=== PATIENT | male | born 1965 | race Caucasian/White ===

== ENCOUNTER 2020-11-19 15:05 | Emergency (ER) | payer OTHER, SELFPAY ==
--- NOTE | ~2020-11-19 | XR_ITS ---
EXAMINATION: XR finger 2nd LT min 2V EXAM DATE: 11/19/2020 15:28 INDICATION: Circular saw vs finger.. Initial encounter. TECHNIQUE: Left 2nd finger frontal, lateral and oblique projections obtained and reviewed. There i s no prior study for comparison. FINDINGS: There are no acute left 2nd finger fractures or dislocations identified. There is no subcu taneous gas. There is laceration volar to the middle phalanx. There are no radiopaque foreign ramya s. IMPRESSION: 1. Left 2nd finger exam without acute osseous findings. 2. Soft tissue laceration. Reviewed, dictated and finalized at location A.
[2020-11-19 15:12] VITALS: BP 148/87; RESP 16; TEMP 36; O2SAT 98
[2020-11-19 16:14] VITALS: BP 138/87; PULSE 82; RESP 18; TEMP 36.8; O2SAT 97
--- NOTE | 2020-11-19 16:44 | ED.WOUNDLAC ---
HPI - Wound/Laceration General Chief Complaint: Wound/Laceration Stated Complaint: finger lac Time Seen by Provider: 11/19/20 16:14 Source: patient Mode of arrival: ambulatory Limitations: no limitations History of Present Illness HPI narrative: This is a 55 year old male that presents to the ER for laceration to the left 2nd finger sustained just prior to arrival. Reports he was using a circular saw and accidentally cut the finger. He is up to date on tetanus. Denies decreased ROM or numbness. Related Data Allergies Allergy/AdvReac Type Severity Reaction Status Date / Time No Known Allergies Allergy Unverified 11/03/15 12:24 Review of Systems Review of Systems: Narrative: CONSTITUTIONAL: Denies fever SKIN: Reports laceration NEUROLOGIC: Denies numbness All systems reviewed & are unremarkable except as noted in HPI and below PMFSH Past Medical History Medical History (Updated 11/19/20 @ 18:33 by Kimmy Dorado PA-C) No active medical problems Social History Social History (Updated 11/19/20 @ 16:52 by Kimmy Dorado PA-C) Smoking status: Never smoker Exam Narrative: Exam Narrative: GENERAL: Well-appearing, well-nourished, and in no acute distress. HEAD: Normocephalic, atraumatic. EYES: EOMI. EXTREMITIES: Normal range of motion. Left 2nd finger palmar surface of middle phalanx with 2cm irregular laceration into subcutaneous tissue SKIN: Warm, dry, no rash. NEURO: No focal deficits. Alert and oriented x3. PSYCH: Normal mood and affect Course Vital Signs Vital signs: Vital Signs Temperature 96.8 F L 11/19/20 15:12 Respiratory Rate 16 11/19/20 15:12 Blood Pressure 148/87 H 11/19/20 15:12 Pulse Oximetry 98 11/19/20 15:12 Temperature 98.3 F 11/19/20 16:14 Pulse Rate 82 11/19/20 16:14 Respiratory Rate 18 11/19/20 16:14 Blood Pressure 138/87 11/19/20 16:14 Pulse Oximetry 97 11/19/20 16:14 Procedures Laceration Laceration 1: Date: 11/19/20 Time: 18:32 Site: hand Side (If applicable): left Size (cm): 2 Description: irregular Depth: simple, single layer Local Anesthetic: lidocaine 1% Amount of anesthesia used (mL): 4 Pre-repair: wound explored and irrigated ====== Skin Level ====== Skin layer closed with: nylon Size (cm): 4-0 Number of sutures: 5 Technique: simple, interrupted ====== Subcutaneous Layer ====== ====== Muscle Layer ====== ====== Tendon Layer ====== MDM - Wound/Laceration MDM Narrative Medical decision making narrative: Patient presents the emergency department for left second finger laceration sustained just prior to arrival. Left hand x-rays without acute osseous abnormalities. Patient's wound was irrigated and closed with sutures. He is up-to-date on tetanus. He was educated on wound care. He is to follow-up with primary care doctor. He was given warnings to return to the ER Imaging Data Radiologist's impression: ITS Impressions Finger X-Ray 11/19/20 15:35 IMPRESSION: 1. Left 2nd finger exam without acute osseous findings. 2. Soft tissue laceration. Critical Care Time Critical Care Time Critical Care Time: No Discharge Plan Discharge Clinical Impression: Laceration Patient Disposition: Home, Self-Care Condition: Stable Instructions: Care For Your Stitches (ED), Laceration (ED) Additional Instructions: Return to the emergency department if you experience fever, redness or swelling of your wound, abnormal drainage from your wound, or any other symptoms that are concerning to you. Apply antibiotic ointment daily. Do not soak the wound. Clean with mild soap and water daily Follow-up with your primary care doctor for suture removal in 10-14 days. Prescriptions: New cephalexin 500 mg capsule 500 mg PO Q8H 5 Days Qty: 15 RF: 0 Follow-up/Referrals: Carlos Marroquin MD [Physician
== END 2020-11-19 18:44 | disposition home or self-care (01) ==
PROVIDERS: Emergency Provider Emergency Medicine
DX: S61.211A Laceration without foreign body of left index finger without damage to nail, initial encounter (principal); W27.0XXA Contact with workbench tool, initial encounter
CPT/HCPCS: 12001; 73140; 99283

== ENCOUNTER 2020-11-29 08:06 | Emergency (ER) | payer OTHER, SELFPAY ==
[2020-11-29 08:12] VITALS: BP 143/81; PULSE 63; RESP 16; TEMP 36.1; O2SAT 100
--- NOTE | 2020-11-29 08:21 | ED.WOUNDLAC ---
HPI - Wound/Laceration General Chief Complaint: Wound/Laceration Stated Complaint: SUTURE REMOVAL Time Seen by Provider: 11/29/20 08:21 Source: patient Mode of arrival: ambulatory Limitations: no limitations History of Present Illness HPI narrative: Ryan Dolan is a 55 yo male with no PMH who came in for suture removal. Sutures placed in emergency room at [facility] 10 days ago. Cut R index finger with cordless power saw above the DNP, palmar side Related Data Home Medications Medication Instructions Recorded Confirmed multivitamin [Daily Multivitamin] tablet 11/29/20 Allergies Allergy/AdvReac Type Severity Reaction Status Date / Time No Known Allergies Allergy Verified 11/29/20 08:14 Review of Systems Review of Systems: Narrative: CONSTITUTIONAL: Denies fever, chills, sweats. EYES: Denies visual changes, redness, discharge. ENT: Denies rhinorrhea, congestion, sore throat, otalgia. CARDIOVASCULAR: Denies chest pain, palpitations, edema. RESPIRATORY: Denies dyspnea, wheezing, cough GASTROINTESTINAL: Denies abdominal pain, nausea, vomiting, diarrhea. GENITOURINARY: Denies dysuria, hematuria, abnormal discharge SKIN: Denies rash or itching. Suture removal to right distal index finger palmar side NEUROLOGIC: Denies numbness, or focal weakness. PSYCHIATRIC: Denies anxiety or depression. PMFSH Past Medical History Medical History No active medical problems Social History Social History (Updated 11/29/20 @ 08:46 by Kathy Bhat CNP) Smoking status: Never smoker Alcohol intake: current Comments At time of signature, I agree with nursing past medical, surgical, social and family history. There is no relevant family history pertinent to the presenting complaint. Because patient's blood pressure is elevated at this visit and he does not have a primary care physician, pt was given a list of primary care doctors to establish care. Emphasized Need for follow-up Exam Narrative: Exam Narrative: GENERAL: This is a well-nourished, well-developed patient, in mild distress. HEAD: normocephalic, atraumatic. EYES:Sclera clear/white. Vision is grossly intact. EARS: External ears normal, . Hearing grossly intact. NOSE: External nose normal without nasal discharge, nares without redness, no rhinorrhea. THROAT: Mucous membranes moist, NECK: Neck supple, non-tender CARDIOVASCULAR: Regular rate and rhythm without murmurs, gallops, or rubs. RESPIRATORY: Coarse to auscultation. Breath sounds equal bilaterally. No wh has wheezing in right upper lobe with no history of asthma or seasonal allergies GASTROINTESTINAL: Abdomen soft, SKIN: warm, intact with good healing and approximation of laceration on right index finger on the palmar side, little to the dnp. No erythema, no induration, no drainage NEURO: awake, alert, and oriented to person, place and time. There were no obvious focal neurologic abnormalities. Steady gait EXTREMITIES: Normal range of motion. BACK: Nontender without deformity Course Course Emergency Course: Patient here for suture removal after suture placement in the ER 10 days ago; has healed well approximated no induration or redness, need 5 sutures removed Patient removed without difficulty Vital Signs Vital signs: Vital Signs Temperature 97.0 F L 11/29/20 08:12 Pulse Rate 63 11/29/20 08:12 Respiratory Rate 16 11/29/20 08:12 Blood Pressure 143/81 H 11/29/20 08:12 Pulse Oximetry 100 11/29/20 08:12 Temperature 97.0 F L 11/29/20 08:12 Pulse Rate 63 11/29/20 08:12 Respiratory Rate 16 11/29/20 08:12 Blood Pressure 143/81 H 11/29/20 08:12 Pulse Oximetry 100 11/29/20 08:12 Procedures Other Procedure Procedure 1: Other Procedure: 5 sutures removed without incident Dressing and Neosporin applied MDM - Wound/Laceration Differential Diagnosis Differential diagnosis: Likely other (Suture removal) Crit
== END 2020-11-29 08:59 | disposition home or self-care (01) ==
PROVIDERS: Emergency Provider Nurse Practitioner
DX: S61.210D Laceration without foreign body of right index finger without damage to nail, subsequent encounter (principal); W27.8XXD Contact with other nonpowered hand tool, subsequent encounter
CPT/HCPCS: 99211; G0463

== ENCOUNTER 2024-12-12 09:36 | Emergency (ER) | payer OTHER, SELFPAY ==
--- NOTE | ~2024-12-12 | XR_ITS ---
XR knee LT min 4V Ordering provider: Kimmy Dorado PA-C History: . left knee pain, injury, TREE BRANCH FELL ONTO LT KNEE . Comparison: None. FINDINGS: BONES: No acute fracture or dislocation. JOINT SPACES: Severe narrowing of the medial compartment. Marginal osteophytes are noted. SOFT TISSUES: Fluid in the suprapatellar bursa. IMPRESSION: No acute osseous abnormality left knee. Severe osteoarthritic changes. Reviewed, dictated and finalized at location A.
[2024-12-12 10:00] VITALS: BP 136/83; PULSE 83; RESP 18; O2SAT 96
--- OUTSIDE RECORDS SUMMARY | 2024-12-12 10:00 | XMS_ITS | Referral Summary ---
Author Organization [facility] Care Team Providers Care Security Incident Response Specialist Name Role Phone Jarrell Wallace MD Primary Care Provider [phone] Allergies No known active allergies Medications ibuprofen (ADVIL,MOTRIN) 200 mg tab/cap Take by mouth every 6 (six) hours as needed for pain Active multivit-min/vikash marlene fumarate (MULTI VITAMIN ORAL) Take by mouth Active Active Problems Problem Noted Date Diagnosed Date Encounter for medical examination to establish c are 11/06/2021 Assessment & Plan (11/06/2021 11:15 AM CDT): A initial well visit to establish care has been performed today. Ryan Dolan is not up to date on screening tests. He is in need of Prostate screening, Hepatitis C screening and Colon cancer screening- these have been ordered. He is not up to date on needed preventative vaccinations; He is in need of Covid-19 (booster). He is inclined not to get COVID booster Labs as ordered; if there are derangements on the results, I may bring you back sooner than 1 year (for example, if there is elevated cholesterol, or kidney disease, etc) Would encourage adding regular exercise outside of work (150 minutes per week of cardio) Immunizations Immunization Administration Dates Next Due Hep B Vaccine 07/01/2012,02/05/2012 Hep B, Unspecified 12/25/2011 Pfizer SARS-CoV-2 Monovalent Vaccination (12+ Yrs) PURPLE 03/08/2021 Tdap 11/25/2020 Social History Tobacco Use Types Packs/Day Years Used Date Smoking Tobacco: Never Smokeless Tobacco: Never Tobacco Cessation:Counseling Given: Not Answered AUDIT-C Answer Date Recorded Q1: How often do you have a drink containing alc ohol? 2-4 times a month 11/06/2021 Q2: How many drinks containi ng alcohol do you have on a typical day when you are drinking? 5 or 6 11/06/2021 Q3: How often do you have si x or more drinks on one occasion? 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 Not on file Not on file Last Filed Vital Signs Vital Sign Reading Time Taken Comments Blood Pressure 136/90 06/24/2023 11:48 AM CARD GRINDER Pulse 75 06/24/2023 11:48 AM CARD GRINDER Temperature 37.1 C (98.8 F) 06/24/2023 11:48 AM CARD GRINDER Respiratory Rate 18 06/24/2023 12:09 PM CARD GRINDER Oxygen Saturation 98% 06/24/2023 12:09 PM CARD GRINDER Inhaled Oxygen Concentration - - Weight 103 kg (227 lb) 06/24/2023 11:48 AM CARD GRINDER Height 185.4 cm (6' 0.99 ) 06/24/2023 11:[address] Body Mass Index 29.96 06/24/2023 11:48 AM CARD GRINDER Plan of Treatment Not on file Procedures Procedure Name Priority Date/Time Associated Diagnosis Comments PSA SCREEN Routine 02/13/2022 8:05 AM CDT Elevated PSA HEPATITIS C ANTIBODY Routine 11/06/2021 9:58 AM CDT Need for hepatitis C screening test from Last 3 Months or Most Recently Relevant to Health Maintenance Results * (ABNORMAL) PSA screen (02/13/2022 8:05 AM CDT) PSA-Total 6.38(H) <=3.90 ng/mL [facility] Comment: Interpretive Data AGE SEX REFERENCE INTERVAL 0 minutes-150 years Female None 0 minutes-49 years Male None 50-59 years Male 0-3.90 60-69 years Male 0-5.40 70-79 years Male 0-6.20 80-150 years Male 0-6.20 The Trevor PSA Total assay procedure was used. Results from different manufacturers or methods may not be comparable. Serial testing should be performed using the same method. Current interpretive data last revised 21. Blood 02/13/2022 8:05 AM CDT 02/13/2022 3:37 PM CDT Jarrell Wallace MD LAB BLOOD ORDERABLES Final Result Performing Organization Address [facility] Phone Number [facility] [address] [place] [address] * Hepatitis C antibody (11/06/2021 9:58 AM CDT) Hep C Ab Nonreactive Nonreactive [facility] Comment: Interpretive Data Nonreactive: Antibodies to HCV not detected. Does NOT exclude the possibility of recent exposure to HCV. Equivocal: Equivocal for HCV antibodies. Supplemental molecular testing will be automatically performed to determine infection status in accordance with current CDC screening recommendations. Reactive: Positive for HCV antibodies. This may represent current or past HCV infection. Supplemental molecular testing will be automatically performed to determine current infection status in accordance with current CDC screening recommendations. Interpretive data was last revised on 2019. Blood 11/06/2021 9:58 AM CDT 11/06/2021 3:06 PM CDT Jarrell Wallace MD LAB MICROBIOLOGY - GENERAL ORDERABLES Final Result Performing Organization Address [facility] Co de Phone Number [facility] [address] [place], [place] [id number] from Last 3 Months or Most Recently Relevant to Health Maintenance Insurance CIGNA CIGNA Care Teams Security Incident Response Specialist Relationship Specialty Start Date End Date Jarrell Wallace MD [address] [place] [address] PCP - General Family Medicine 11/05/21
--- OUTSIDE RECORDS SUMMARY | 2024-12-12 10:00 | XMS_ITS | Clinical Summary ---
Author Organization [facility] Facility Address [address] [place] [address] Care Team Providers Care Gear Tester Name Role Phone Unavailable Primary Care Provider Unavailabl e Medications ibuprofen (ADVIL,MOTRIN) 200 MG tablet Take by mouth Active Immunizations Immunization Administration Dates Next Due Hep B, Unspecified 12/25/2011 Hepatitis B 07/01/2012,02/05/2012 Tdap 11/25/2020 Social History Tobacco Use Types Packs/Day Years Used Date Smoking Tobacco: Never Assessed Sex and Gender Information Value Date Recorded Sex Assigned at Not on file Legal Sex Male 9:19 AM EDT Gender Identity Not on file Sexual Orientation Not on file Plan of Treatment Health Maintenance Due Date Last Done Comments Hepatitis B Vaccine (1 of 3 - 19+ 3-dose series) 1984 07/01/2012, 02/05/2012, 12/25/2011 Colorectal Cancer Screening: Annual FOBT 2014 Colorectal Cancer Screening: Colonoscopy 2014 Colorectal Cancer Screening: Sigmoidoscopy 2014 Pneumococcal Vaccine: 50+ Ye ars (1 of 1 - PCV) 2015 Influenza Vaccine (Season Ended) 2025 Insurance [employer]
--- OUTSIDE RECORDS SUMMARY | 2024-12-12 10:00 | XMS_ITS | Clinical Summary ---
Author Organization [facility] Care Team Providers Care Shoe Cobbler Name Role Phone Jarrell Wallace MD Primary Care Provider [phone] Allergies No known active allergies Medications ibuprofen [...] Vaccination (12+ Yrs) PURPLE 03/08/2021 Tdap 11/25/2020 Surgical History Surgery Date Site/Laterality Comments FINGER SURGERY 07/27/2019 - 07/26/2020 Left laceration repair TUMOR EXCISION lipoma upper back Medical History Medical History Date Comments History of pneumonia 2006 15 years ag o Family History Medical History Relation Name Comments Diabetes Brother Diabetes Father No Known Problems Mother Relation Name Status Comments Brother Father Mother Social History Tobacco Use Types Packs/Day Years [...] 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 Not on file Obstetrics History Last Filed Vital Signs Vital Sign Reading Time Taken Comments Blood Pressure 136/90 06/24/2023 11:48 AM PARK WARDEN Pulse 75 06/24/2023 11:48 AM P[employer] WARDEN Temperature 37.1 C (98.8 F) 06/24/2023 11:48 AM P[employer] WARDEN Respiratory Rate 18 06/24/2023 12:09 PM P[employer] WARDEN Oxygen Saturation 98% 06/24/2023 12:09 PM P[employer]ARDEN Inhaled Oxygen Concentration - - Weight 103 kg (227 lb) 06/24/2023 11:48 AM P[employer] WARDEN Height 185.4 cm (6' 0.99 ) 06/24/2023 11:[address] Body Mass Index 29.96 06/24/2023 11:48 AM PARK WARDEN Plan of Treatment Health Maintenance Due Date Last Done Comments Colon Cancer Screening-Colonoscopy 1965 Zoster Vaccine (1 of 2) 2015 Depression Screening 11/06/2022 11/06/2021, 11/06/2021 Regular Well Visit/Exam 18-64 11/06/2022 11/06/2021 Prostate Cancer Screening-PSA 02/14/2024, 11/06/2021 Covid-19 Vaccine (3 - 2023-2 5 season) 2024 03/29/2021, 03/08/2021 Influenza Vaccine (#1) 2024 DTaP/Tdap/Td Vaccine (2 - Td or Tdap) 11/25/2030 11/25/2020 Hepatitis B Screening Completed 07/01/2012 , 02/05/2012, 12/25/2011 Hepatitis C Screening Completed 11/06/2021 Pneumococcal vaccine <65 Aged Out No longer eligible based on patient's age to complete this topic Procedures Procedure Name Priority Date/Time Associated Diagnosis [...] 8:05 AM CDT 02/13/2022 3:37 PM CDT us Jarrell Wallace MD LAB BLOOD ORDERABLES Final Result [facility] [id number] [place] [address] * Hepatitis C antibody (11/06/2021 [...] LAB MICROBIOLOGY - GENERAL ORDERABLES Final Result [facility] [address] Department [place] [address] from Last 3 Months or Most Recently Relevant to Health Maintenance Insurance CIGNA CIGNA Care Teams Shoe Cobbler Relationship Specialty Start Date End Date Jarrell Wallace MD [address] [place] [address] PCP - General Family Medicine 11/05/21
--- NOTE | 2024-12-12 10:59 | ED_ITS ---
HPI - Extremity Injury (Lower) General Chief Complaint: Extremity Injury, Lower Stated Complaint: LEFT KNEE PAIN, INJURY Time Seen by Provider: 12/12/24 10:20 Source: patient Mode of arrival: ambulatory Limitations: no limitations History of Present Illness HPI Narrative: This is a 59 year old male that presents to the ER after an injury this morning. Reports a tree branch swung and hit him in the knee. Reports swelling and pain to the area. Denies decreased ROM or numbness. Related Data Home Medications Medication Instructions Recorded Confirmed Last Taken Type multivitamin 1 tablet PO DAILY 11/29/20 11/29/20 Unknown History Allergies Allergy/AdvReac Type Severity Reaction Status Date / Time No Known Allergies Allergy Verified 11/29/20 08:14 Review of Systems Review of Systems: CONSTITUTIONAL: Denies fever MUSCULOSKELETAL: Reports joint pain, and myalgia. NEUROLOGIC: Denies numbness, or weakness. All systems reviewed & are unremarkable except as noted in HPI and below PMFSH Past Medical History Medical History No active medical problems Social History Social History (Updated 11/29/20 @ 08:46 by Kathy Bhat, [employer] HRMS DEVELOPER) Smoking status: Never smoker Alcohol intake: current Exam Narrative: GENERAL: Well-appearing, well-nourished, and in no acute distress. HEAD: Normocephalic, atraumatic. EYES: EOMI. EXTREMITIES: Normal range of motion. Moderate edema about the left knee anteriorly without overlying redness SKIN: Warm, dry, no rash. NEURO: No focal deficits. Alert and oriented x3. PSYCH: Normal mood and affect Course Course Emergency Course: patient updated on his workup and agrees with plan of care Vital Signs Vital signs: Vital Signs Pulse Rate 83 12/12/24 10:00 Respiratory Rate 18 12/12/24 10:00 Blood Pressure 136/83 12/12/24 10:00 Pulse Oximetry 96 12/12/24 10:00 Oxygen Delivery Room Air 12/12/24 10:00 Pulse Rate 83 12/12/24 10:00 Respiratory Rate 18 12/12/24 10:00 Blood Pressure 136/83 12/12/24 10:00 Pulse Oximetry 96 12/12/24 10:00 Oxygen Delivery Room Air 12/12/24 10:00 Procedures Orthopedic Splinting/Casting Injury #1: Splinting/Casting Date: 12/12/24 Splinting/Casting Time: 11:08 Side: left Lower Extremity Injury Location: knee Lower Extremity Immobilizer: Oneil wrap Pre-Procedure Neuro Vascular Exam: normal Post-Procedure Neuro Vascular Exam: normal Other Orthopedic Equipment: crutches MDM - Extremity Injury (Lower) MDM Narrative Medical decision making narrative: Patient presents to the emergency department for left knee pain after an injury sustained this morning. Patient is neurovascularly intact. Left knee x-ray without acute osseous abnormalities. Patient placed in Oneil wrap and given crutches. Will be given follow up with orthopedics. He was given warnings to return to the ER Differential Diagnosis Differential diagnosis: Likely acute internal derangement of knee and other (contusion, patella fracture) Imaging Data Radiologist's impression: ITS Impressions Knee X-Ray 12/12/24 10:55 IMPRESSION: No acute osseous abnormality left knee. Severe osteoarthritic changes. Critical Care Time Critical Care Time Critical Care Time: No Discharge Plan Discharge Clinical Impression: Contusion of knee, left Qualifiers: Encounter type: initial encounter Qualified Code(s): S80.02XA - Contusion of left knee, initial encounter Patient Disposition: Home Condition: Stable Instructions: Knee Sprain (ED) Additional Instructions: Return to the ER if you experience fever, redness and swelling of your extremity, numbness or any other symptoms that are concerning to you Wear ONEIL wrap and use crutches. No weight on the affected leg. Ice and elevate extremity. Pain medication as needed and directed. Follow up with orthopedics for further care. Patient Language: Albanian Prescriptions: No Action multivitamin [Daily Multivitamin] Tablet 1 tablet PO DAILY Follow-up/Referrals: PHYSICIAN,ONLINE FACILITATOR [Primary Care Provider] - Cade Key MD [Physician] -
--- OUTSIDE RECORDS SUMMARY | 2024-12-12 11:31 | XMS_ITS | Referral Summary ---
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 on file Not on file Last Filed Vital Signs Vital Sign Reading Time Taken Comments Blood Pressure 136/90 06/24/2023 11:48 AM MOBILE PHONE SALESPERSON Pulse 75 06/24/2023 11:48 AM MOBILE PHONE SALESPERSON Temperature 37.1 C (98.8 F) 06/24/2023 11:48 AM MOBILE PHONE SALESPERSON Respiratory Rate 18 06/24/2023 12:09 PM MOBILE PHONE SALESPERSON Oxygen Saturation 98% 06/24/2023 12:09 PM MOBILE PHONE SALESPERSON Inhaled Oxygen Concentration - - Weight 103 kg (227 lb) 06/24/2023 11:48 AM MOBILE PHONE SALESPERSON Height 185.4 cm (6' 0.99 ) 06/24/2023 11:[address] Body Mass Index 29.96 06/24/2023 11:48 AM MOBILE PHONE SALESPERSON Plan of Treatment Not on file Procedures [...] BLOOD ORDERABLES Final Result Performing Organization Address [facility] Phone Number [facility] [address] [place] [address] * Hepatitis C antibody (11/06/2021 [...] GENERAL ORDERABLES Final Result Performing Organization Address [facility] Co de Phone Number [facility] [address] [place], [place] [phone] from Last 3 Months or Most Recently Relevant to Health Maintenance Insurance CIGNA CIGNA Care Teams Women Designer Relationship Specialty Start Date End Date Jarrell Wallace MD [address] [place] [address] PCP - General Family Medicine 11/05/21
--- OUTSIDE RECORDS SUMMARY | 2024-12-12 11:31 | XMS_ITS | Clinical Summary ---
Author Organization [facility] Facility Address [address] [place] [address] Care Team Providers Care Machined Parts Metal Sprayer Name Role Phone Unavailable Primary Care Provider [...]
--- OUTSIDE RECORDS SUMMARY | 2024-12-12 11:31 | XMS_ITS | Clinical Summary ---
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 Not on file Not on file Obstetrics History Last Filed Vital Signs Vital Sign Reading Time Taken Comments Blood Pressure 136/90 06/24/2023 11:48 AM [employer] Pulse 75 06/24/2023 11:48 AM [employer] Temperature 37.1 C (98.8 F) 06/24/2023 11:48 AM [employer] Respiratory Rate 18 06/24/2023 12:09 PM [employer] Oxygen Saturation 98% 06/24/2023 12:09 PM [employer] Inhaled Oxygen Concentration - - Weight 103 kg (227 lb) 06/24/2023 11:48 AM [employer] Height 185.4 cm (6' 0.99 ) 06/24/2023 11:[address] Body Mass Index 29.96 06/24/2023 11:48 AM [employer] Plan of Treatment Health Maintenance Due Date [...] LAB BLOOD ORDERABLES Final Result [facility] [id number] [place] [address] * Hepatitis C antibody (11/06/2021 [...] MICROBIOLOGY - GENERAL ORDERABLES Final Result [facility] [id number] [facility] [place] [address] from Last 3 Months or Most Recently Relevant to Health Maintenance Insurance [employer] Care Teams Street[employer] St[employer] Relationship Specialty Start Date End Date Jarrell Wallace MD [address] [place] [address] PCP - General Family Medicine 11/05/21
== END 2024-12-12 11:24 | disposition home or self-care (01) ==
PROVIDERS: Emergency Provider Physician Assistant
DX: S80.02XA Contusion of left knee, initial encounter (principal); M17.12 Unilateral primary osteoarthritis, left knee; W20.8XXA Other cause of strike by thrown, projected or falling object, initial encounter
CPT/HCPCS: 73564; 99283

== ENCOUNTER 2024-12-23 12:52 | Outpatient (CLI) | payer OTHER, SELFPAY ==
--- NOTE | ~2024-12-23 | MR_ITS ---
EXAMINATION: MR knee LT wo con DATE: 12/23/2024 13:57 INDICATION: left knee pain TECHNIQUE: Magnetic resonance imaging (MRI) of the left knee was performed without intravenous contra st. Sequences included axial PD-weighted FS FSE, coronal PD-weighted FSE and PD-weighted FS FSE, sagi ttal PD-weighted FSE, and sagittal T2-weighted FS FSE. COMPARISON: X-ray left knee 12/12/2024 FINDINGS: Medial compartment: Severe loss of cartilage along both sides of the joint. Moderate osteophytosis. Triangular-shaped, 2. 4 x 1.0 cm osteochondral fragment along the posterior aspect of the medial tibial plateau, mildly dis placed. Oblique body and vertical posterior horn tears of the medial meniscus which is degenerative i n appearance. Lateral compartment: Degenerative fraying of the meniscus without focal tear. Mild cartilage thinning on the LFC. Mild ost eophytosis. Patellofemoral compartment: Mild partial thickness cartilage signal abnormality. Mild osteophytosis. Retinacula intact. 5 mm foca l area of full-thickness signal abnormality and partial-thickness cartilage loss in the femoral groov e. Ligaments and tendons: Considerable thickening and abnormal signal in the discontiguous ACL. The superficial and deep fibers of the MCL are discontiguous, with moderate thickening. Moderate signal abnormality in the mid and d istal PCL. Mild thickening and signal abnormality in the proximal fibers of the LCL. Moderate signal abnormality superficial and deep to the pes anserine tendons. The long head of biceps tendon and IT b and appear to be intact. Fluid: Large volume joint fluid. Multifocal loose bodies present within the joint space. Osseous/other: Posterolateral marrow signal abnormality adjacent to the fracture site. Mild marrow edema at the late ral aspect of the MFC in the posterior aspect of the lateral tibial plateau. IMPRESSION: Mildly displaced triangular osteochondral fragment along the posterior margin of the medial tibial pl [place]. Medial meniscal tears involving the posterior horn and body. Complete ACL and MCL tears. Partial tears of the PCL and LCL. Moderate strain of the pes anserine tendons. Large joint effusion with loose bodies. Reviewed, dictated and finalized at location K. IMPRESSION: Mildly displaced triangular osteochondral fragment along the posterior margin o f the medial tibial plateau. Medial meniscal tears involving the posterior horn and body. Complete ACL and MCL tears. Partial tears of the PCL and LCL. Moderate strain of the pes anserine tendons. Large joint effusion with loose bodies.
== END 2024-12-23 12:53 | disposition home or self-care (01) ==
LOC: GOSHIMG 12:53
PROVIDERS: PCP Orthopaedic Surgery; Visit Provider Orthopaedic Surgery
DX: S83.242A Other tear of medial meniscus, current injury, left knee, initial encounter (principal); S83.512A Sprain of anterior cruciate ligament of left knee, initial encounter; S83.422A Sprain of lateral collateral ligament of left knee, initial encounter; M76.892 Other specified enthesopathies of left lower limb, excluding foot; M25.462 Effusion, left knee; M23.42 Loose body in knee, left knee; X58.XXXA Exposure to other specified factors, initial encounter
CPT/HCPCS: 73721